=== PATIENT | male | born 1970 | race Caucasian/White ===

== ENCOUNTER 2016-08-28 09:52 | Emergency (ER) | payer BC ==
[~2016-08-28] VITALS: Ht 172.7 cm; Wt 100.6 kg
[2016-08-28 09:55] VITALS: O2SAT 100
[2016-08-28] MEDS ORDERED: ATOR10TA82 PO (09:59)
[2016-08-28] MEDS ORDERED: OMEGCAP2 PO (09:59)
[2016-08-28] MEDS ORDERED: COEN10CA5 PO (09:59)
[2016-08-28 10:05] VITALS: Ht 172.7 cm; Wt 100.6 kg
[2016-08-28] MEDS ORDERED: METHYLPREDNISOLONE 125 MG VIAL IV STA (10:29)
[2016-08-28] MEDS ORDERED: DiphenhydrAMINE HCL 50 MG/ML VIAL IV STA (10:29)
[2016-08-28] MEDS ORDERED: FAMOTIDINE IV INJ 40 MG in DEXTROSE 5% 100ML 100 ML IV SCH (10:30)
[2016-08-28] MEDS ORDERED: FAMOTIDINE 20 MG TAB PO ONE (10:45)
--- NOTE | 2016-08-28 10:52 | DIAGNOSTIC IMAGING REPORT ---
CHEST ONE VIEW PORTABLE CLINICAL HISTORY: sob COMPARISON STUDY: No previous studies for comparison. FINDINGS: The heart is at the upper limits of normal in size. There is no failure. There is no focal pulmonary consolidation. There are no pleural effusions.[ IMPRESSION: No active disease in the chest. Electronically signed by: Moshe Huerta M.D. 08/28/2016 10:51 AM Dictated Date/Time: 08/28/2016 10:50 AM
[2016-08-28 11:42] LABS: BASO % 0.1 %; BASO ABS # 0.01 K/uL (0-0.2); COMPLETE YES; EOS % 0.4 %; HEMATOCRIT 44.3 % (42-52); IG% 0.4 %; LYMPH % 6.8 %; LYMPH ABS # 1.08 K/uL (1.2-3.4); MEAN CELL VOLUME 92.1 fL (80-100); MEAN CORPUSCULAR HEMOGLOBIN 30.4 pg (25-34); MEAN PLATELET VOLUME 10.9 fL (7.4-10.4); MONO % 6.9 %; NEUT % 85.4 %; PLATELET COUNT 240 K/uL (130-400); RED BLOOD COUNT 4.81 M/uL (4.7-6.1); WHITE BLOOD COUNT 15.89 K/uL (4.8-10.8)
[2016-08-28 11:48] VITALS: TEMP 37
[2016-08-28 12:02] LABS: BUN/CREATININE RATIO 12.5 (10-20); CALCIUM 9.3 mg/dl (8.5-10.1); CREATININE 1.1 mg/dl (0.60-1.40)
[2016-08-28 13:01] VITALS: BP 122/66; PULSE 69; O2SAT 99
--- NOTE | 2016-08-28 14:54 | EMERGENCY ROOM VISIT NOTE ---
History Report prepared by Christina: Brittaney Alba Under the Supervision of: Dr. Jimbo Sanchez D.O. First contact with patient: 10:09 Chief Complaint: ALLERGIC REACTION Stated Complaint: SHORTNESS OF BREATH Nursing Triage Summary: Pt arrives via [facility] litter from [place]. Pt initially reported "feeling a lump in throat", lightheaded and having itchy hands. Upon arrival pt denies sob or feeling of lump in throat. 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 Pt states he is 11 days into prescribed steroid use for a cough he had since June. Also reports taking an unknown pain medication last night for tennis elbow, but states he has taken this before. 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 The patient came to the ED via ambulance from [place], which is where he works. The patient states that he was eating a banana at his desk at work when his bilateral hands became pruritic. He states that the pruritus became generalized and then he developed some shortness of breath with some difficulty swallowing. He also experienced cold sweats and lightheadedness. The patient states that all of his symptoms resolved after about 15-20 minutes except his skin erythema and some of the pruritus. He states that he developed a headache after most of his symptoms resolved. The patient states that he is only pruritic in his leg now and that all other pruritus has resolved. He states that his skin erythema is improving, but it is still there. His significant other states that he is not typically this erythematous. Pt denies change in vision, fevers, chest pain , nausea, vomiting, diarrhea, and pain with urination. The patient states that he experienced similar symptoms 3 years ago, but he did not have any skin erythema and he is unsure of the cause of his symptoms at that time. The patient denies recent travel as well as recent changes in detergents or new clothing. He states that he took a pain medication last night for tennis elbow, but he states that he has taken this before. The patient also started using a steroid inhaler for a cough 11 days ago, but that is his only somewhat new medication. 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 A total of 10 systems reviewed and were otherwise negative. Past Medical & Surgical Medical Problems: (1) Hyperlipidemia Family History No pertinent family history Social History Smoking Status: Never Smoker Marital Status: Housing Status: lives with family Current/Historical Medications Scheduled Atorvastatin (Lipitor), 10 MG PO DAILY Coenzyme Q10 (Ubidecarenone) (Co Q 10), 10 MG PO DAILY [place]-3 Fatty Acids (Fish Oil), 1 CAP PO DAILY Allergies Coded Allergies: No Known Allergies (Unverified , 08/28/16) Physical Exam Vital Signs Date Time Temp Pulse Resp B/P Pulse Ox O2 Delivery O2 Flow Rate FiO2 08/28/16 13:01 69 18 122/66 99 08/28/16 12:28 70 08/28/16 11:48 37.0 69 19 115/70 99 Room Air 08/28/16 10:07 100 Room Air 08/28/16 10:05 36.7 71 20 103/60 100 Room Air 08/28/16 09:57 71 08/28/16 09:55 100 Room Air Physical Exam GENERAL: alert, sitting up in bed, well appearing, well nourished, no distress, non-toxic EYE EXAM: normal conjunctiva, PERRL and EOM's intact OROPHARYNX: no exudate, no erythema, lips, buccal mucosa, and tongue normal and mucous membranes are moist NECK: supple, no nuchal rigidity, no adenopathy, non-tender LUNGS: Clear to auscultation. Normal chest wall mechanics HEART: no murmurs, S1 normal and S2 normal ABDOMEN: abdomen soft, non-tender, normo-active bowel sounds, no masses, no rebound or guarding. BACK: Back is symmetrical on inspection and there is no deformity, no midline tenderness, no CVA tenderness. SKIN: diffuse erythematous rash which blanches on chest, back, and lower extremities. UPPER EXTREMITIES: upper extremities are grossly normal. LOWER EXTREMITIES: No pitting edema. NEURO EXAM: Normal sensorium, cranial nerves II-XII intact, normal speech, no weakness of arms, no weakness of legs. No drift. Finger to nose intact. Gross sensation intact. Medical Decision & Procedures ER Provider Diagnostic Interpretation: Radiology results as stated below per my review and the radiologist's interpretation: CHEST ONE VIEW PORTABLE FINDINGS: The heart is at the upper limits of normal in size. There is no failure. There is no focal pulmonary consolidation. There are no pleural effusions.[ IMPRESSION: No active disease in the chest. Electronically signed by: Moshe Huerta M.D. 08/28/2016 10:51 AM Dictated Date/Time: 08/28/2016 10:50 AM Laboratory Results 08/28/16 11:10 Red Blood Count 4.81, Mean Corpuscular Volume 92.1, Mean Corpuscular Hemoglobin 30.4, Mean Corpuscular Hemoglobin Concent 33.0, Mean Platelet Volume 10.9, Neutrophils (%) (Auto) 85.4, Lymphocytes (%) (Auto) 6.8, Monocytes (%) (Auto) 6.9, Eosinophils (%) (Auto) 0.4, Basophils (%) (Auto) 0.1, Neutrophils # (Auto) 13.58, Lymphocytes # (Auto) 1.08, Monocytes # (Auto) 1.10, Eosinophils # (Auto) 0.06, Basophils # (Auto) 0.01 08/28/16 11:10 Test 08/28/16 11:10 White Blood Count 15.89 K/uL (4.8-10.8) Red Blood Count 4.81 M/uL (4.7-6.1) Hemoglobin 14.6 g/dL (14.0-18.0) Hematocrit 44.3 % (42-52) Mean Corpuscular Volume 92.1 fL (80-100) Mean Corpuscular Hemoglobin 30.4 pg (25-34) Mean Corpuscular Hemoglobin Concent 33.0 g/dl (32-36) Platelet Count 240 K/uL (130-400) Mean Platelet Volume 10.9 fL (7.4-10.4) Neutrophils (%) (Auto) 85.4 % Lymphocytes (%) (Auto) 6.8 % Monocytes (%) (Auto) 6.9 % Eosinophils (%) (Auto) 0.4 % Basophils (%) (Auto) 0.1 % Neutrophils # (Auto) 13.58 K/uL (1.4-6.5) Lymphocytes # (Auto) 1.08 K/uL (1.2-3.4) Monocytes # (Auto) 1.10 K/uL (0.11-0.59) Eosinophils # (Auto) 0.06 K/uL (0-0.5) Basophils # (Auto) 0.01 K/uL (0-0.2) RDW Standard Deviation 45.4 fL (36.4-46.3) RDW Coefficient of Variation 13.4 % (11.5-14.5) Immature Granulocyte % (Auto) 0.4 % Immature Granulocyte # (Auto) 0.06 K/uL (0.00-0.02) Anion Gap 7.0 mmol/L (3-11) Est Creatinine Clear Calc Drug Dose 98.5 ml/min Estimated GFR () 94.1 Estimated GFR (Non- 81.2 BUN/Creatinine Ratio 12.5 (10-20) Calcium Level 9.3 mg/dl (8.5-10.1) Laboratory results per my review. Medications Administered Medications (Trade) Dose Ordered Sig/Erin Route Start Time Stop Time Status Last Admin Dose Admin Famotidine (Pepcid Tab) 40 mg NOW ONCE PO 08/28/16 10:45 08/28/16 10:46 DC 08/28/16 11:01 40 MG Diphenhydramine HCl (Benadryl Cap) 50 mg NOW ONCE PO 08/28/16 10:45 08/28/16 10:46 DC 08/28/16 11:01 50 MG Prednisone (PredniSONE TAB) 60 mg STK-MED ONCE .ROUTE 08/28/16 10:58 08/28/16 10:59 DC 08/28/16 11:01 50 MG ECG Indication: SOB/dyspnea Rate (beats per minute): 56 Rhythm: sinus bradycardia Findings: other (normal axis, poor baseline, normal intervals) ED Course ED COURSE: Vital signs were reviewed and showed normal. The patients medical record was reviewed The above diagnostic studies were performed and reviewed. ED treatments and interventions as stated above. 1023: The patient was evaluated in room B12. A complete history and physical examination was performed. 1045: Ordered Benadryl Cap 50 mg PO, Pepcid Tab 40 mg PO 1058: Ordered Prednisone 60 mg PO 1100: I reassessed the patient. 1225: Upon reevaluation, the patient is doing well. His rash has resolved and he is back to his baseline. I discussed my findings with the patient and he understands and agrees with the treatment plan. Based on the patients age, coexisting illnesses, exam and lab findings the decision to treat as an outpatient was made. The patient remained stable while under my care. The patient appeared well at the time of discharge. Medical Decision Differential diagnoses includes but is not limited to allergic reaction, anaphylaxis, urticaria, Hall-Pedro syndrome, toxic epidermal necrolysis, erythema multiforme, cellulitis. Patient is a 46-year-old male who presents the ER following eating a banana and feeling itchy and then lightheaded and having cold sweats. He notes that the itchiness initially started on his upper extremities and traveled throughout his entire body. He did have mild shortness of breath for a couple minutes during this episode. All the symptoms have abated with the exception of the itchiness upon presentation to the ER. Patient denies any chest pain or shortness of breath. His exam is otherwise benign. Vitals are unremarkable. CBC and BMP were obtained and show a leukocytosis of 15,000 which I favors likely stress-induced as he was very anxious. EKG and chest x-ray were unremarkable. He was given Benadryl, prednisone and famotidine with resolution of his symptoms. The rash has completely resolved. Uncertain of the true cause of these symptoms and I do not favor this is the indomethacin as has taking this before in the past dose was several 11 hours ago. Patient was updated regards to his findings and is discharged follow-up his primary care doctor. Discussed with Pt concerning signs and symptoms to watch out for. Pt was instructed to follow up with their PCP and discussed with the patient their option to return to the ED at anytime for persistent or worsening symptoms. The appropriate anticipatory guidance and out-patient management, including indications for return to the emergency department, were explained at length to the patient and understood. Impression Primary Impression: Allergic reaction Additional Impression: Leukocytosis Scribe Attestation The scribe's documentation has been prepared under my direction and personally reviewed by me in its entirety. I confirm that the note above accurately reflects all work, treatment, procedures, and medical decision making performed by me. Departure Information Dispostion Home / Self-Care Referrals No Doctor, Assigned (PCP) Forms HOME CARE DOCUMENTATION FORM, IMPORTANT VISIT INFORMATION Patient Instructions ED Allergic Reaction General Other, My [facility] Additional Instructions Please follow up with your primary care doctor with in the next 24 hours. Any worsening of your symptoms, please return to the ED immediately. This includes fevers greater than 100.4, trouble breathing, swelling of your throat, swelling of your tongue, chest pain, passing out or any other concerning signs or symptoms from your standpoint. Please take 50 no grams of Benadryl every 6 hours as needed for itching or swelling. Please do not drive for the next 6-8 hours as your were given Benadryl. Problem Qualifiers Primary Impression: Allergic reaction Encounter type: initial encounter Qualified Codes: T78.40XA - Allergy, unspecified, initial encounter Additional Impression: Leukocytosis Leukocytosis type: unspecified Qualified Codes: D72.829 - Elevated white blood cell count, unspecified
== END 2016-08-28 13:01 | disposition home or self-care (01) ==
LOC: EDBD 09:52 → C.EDB 09:53
DX: T78.40XA Allergy, unspecified, initial encounter (principal); X58.XXXA Exposure to other specified factors, initial encounter; E78.5 Hyperlipidemia, unspecified; Z79.899 Other long term (current) drug therapy; D72.829 Elevated white blood cell count, unspecified; F41.9 Anxiety disorder, unspecified